=== PATIENT | male | born 1980 | race Caucasian/White ===

== ENCOUNTER 2021-08-11 10:36 | Day surgery (SDC) | payer OTHER ==
[~2021-08-11 10:36] MED LIST: Lactated Ringers 1,000 ML IV SCH; Sodium Chloride 0.9% 10 ML Syringe FLUSH PRN
[2021-08-11] MEDS ORDERED: fentaNYL 100 MCG/2 ML SDV ONE (11:09)
[2021-08-11] MEDS ORDERED: Propofol 200 MG/20 ML SDV ONE ×3 (11:09→11:55)
== END 2021-08-11 13:15 | disposition home or self-care (01) ==
LOC: VM.SDS 10:36
PROVIDERS: ATTEND Surgery
DX: Z12.11 Encounter for screening for malignant neoplasm of colon (principal); D12.2 Benign neoplasm of ascending colon; D12.6 Benign neoplasm of colon, unspecified; F17.210 Nicotine dependence, cigarettes, uncomplicated; Z80.0 Family history of malignant neoplasm of digestive organs; Z79.899 Other long term (current) drug therapy
CPT/HCPCS: 00811; 45380; 45384; J2704; J3010; J7120